=== PATIENT | female | born 1935 | race Caucasian/White ===

== ENCOUNTER 2022-04-07 16:21 | Inpatient (IN) ==
[2022-04-07] MEDS: carvediloL 6.25 MG TABLET PO SCH (23:22)
[2022-04-07] MEDS: NIFEdipine XL (24 HR) 30 MG TAB.ER.24 PO SCH (23:22)
[2022-04-08] MEDS: tiZANidine 4 MG TABLET PO PRN ×2 (01:01→08:32)
[2022-04-08 05:04] LABS: Basophils % 0.3 %; Eosinophils # 0.2 K/mcL (0.0-0.6); Eosinophils % 1.4 %; Hematocrit 24.7 % (35.3-44.9); Hemoglobin 7.9 g/dL (11.5-15.4); Lymphocytes # 1.8 K/mcL (0.6-4.6); Lymphocytes % 17.3 %; Mean Corpuscular Hemoglobin 28.3 pg (28.0-33.3); Mean Corpuscular Volume 88.5 fL (83.0-100.0); Mean Platelet Volume 10.5 fL (9.4-12.4); Monocytes # 1.2 K/mcL (0.0-1.3); Monocytes % 11.4 %; Neutrophils # 7.1 K/mcL (1.6-8.9); Platelet Count 260 K/mcL (140-400); Red Blood Count 2.79 M/mcL (3.82-4.97); Segmented Neutrophils % 67.6 %; White Blood Count 10.6 K/mcL (4.3-11.1)
[2022-04-08 05:30] LABS: Calcium 8.2 mg/dL (8.6-10.3)
[2022-04-08] MEDS ORDERED: *HR* Enoxaparin 40 MG/0.4 ML SYRINGE SQ SCH (07:00)
[2022-04-08] MEDS ORDERED: carvediloL 6.25 MG TABLET PO SCH (08:00)
[2022-04-08] MEDS: Aspirin Enteric Coated 81 MG Tablet PO SCH (08:33)
[2022-04-08] MEDS: carvediloL 6.25 MG TABLET PO SCH ×2 (08:33→18:09)
[2022-04-08] MEDS: *HR* GlyBURIDE 5 MG TABLET PO SCH (08:33)
[2022-04-08] MEDS: NIFEdipine XL (24 HR) 30 MG TAB.ER.24 PO SCH ×2 (08:33→22:17)
[2022-04-08] MEDS: (Ezetimibe 10 MG) PO SCH (08:34)
[2022-04-08] MEDS ORDERED: *HR* Dextrose 50 % in Water (Syg) 50 ML SYRINGE IVP PRN (08:45)
[2022-04-08] MEDS ORDERED: Dextrose Gel 15 GM/37.5 ML TUBE PO PRN ×2 (08:45)
[2022-04-08] MEDS ORDERED: D5% in Water 1,000 ML IVC PRN (08:45)
[2022-04-08] MEDS ORDERED: NIFEdipine XL (24 HR) 30 MG TAB.ER.24 PO SCH (09:00)
[2022-04-08] MEDS: Insulin LISPRO 300 UNITS/3 ML VIAL SUBQ SCH ×3 (13:28→22:07)
[2022-04-09] MEDS: tiZANidine 4 MG TABLET PO PRN (00:58)
[2022-04-09 05:07] LABS: Hematocrit 24.4 % (35.3-44.9); Hemoglobin 7.9 g/dL (11.5-15.4); Mean Corpuscular HGB Conc 32.4 g/dL (31.6-35.5); Mean Corpuscular Hemoglobin 28.5 pg (28.0-33.3); Mean Corpuscular Volume 88.1 fL (83.0-100.0); Mean Platelet Volume 10.2 fL (9.4-12.4); Platelet Count 275 K/mcL (140-400); Red Blood Count 2.77 M/mcL (3.82-4.97); Red Cell Distribution Width 16.9 % (11.5-14.5); White Blood Count 12.2 K/mcL (4.3-11.1)
[2022-04-09 05:23] LABS: Albumin/Globulin Ratio 0.9 (1.1-2.2); Bilirubin,Total 0.3 mg/dL (0.3-1.0); Calcium 8.5 mg/dL (8.6-10.3); Globulin 3.2 g/dL (2.4-3.5); Potassium 4.3 mEq/L (3.5-5.1); Total Protein 6.2 g/dL (6.4-8.9)
[2022-04-09] MEDS: *HR* Enoxaparin 30 MG/0.3 ML SYRINGE SQ SCH (05:23)
[2022-04-09] MEDS: Insulin LISPRO 300 UNITS/3 ML VIAL SUBQ SCH ×4 (08:06→20:46)
[2022-04-09] MEDS: (Ezetimibe 10 MG) PO SCH (08:07)
[2022-04-09] MEDS: *HR* GlyBURIDE 5 MG TABLET PO SCH (08:07)
[2022-04-09] MEDS: carvediloL 6.25 MG TABLET PO SCH ×2 (08:07→16:58)
[2022-04-09] MEDS: Aspirin Enteric Coated 81 MG Tablet PO SCH (08:07)
[2022-04-09] MEDS: NIFEdipine XL (24 HR) 30 MG TAB.ER.24 PO SCH ×2 (08:07→20:46)
[2022-04-09 21:59] LABS: Bilirubin,Urine Negative (Negative); Blood,Urine Trace-lysed (Negative); Clarity,Urine Clear (Clear); Color,Urine Yellow (Yellow); Glucose,Urine (UA) Normal (Normal); Ketones,Urine Negative (Negative); Leukocyte Esterase,Urine Negative (Negative); Nitrite,Urine Negative (Negative); Protein,Urine >=300 mg/dL (Neg-Trace); Urobilinogen,Urine Normal (Normal)
[2022-04-09 22:05] LABS: Bacteria,Urine Few per hpf (None-Few); RBC,Urine 0-3 per hpf (0-3); Squamous Epithelial Cell,Urine Few per hpf (None-Few)
[2022-04-10] MEDS: *HR* Enoxaparin 30 MG/0.3 ML SYRINGE SQ SCH (06:15)
[2022-04-10 07:05] LABS: Hematocrit 27.7 % (35.3-44.9); Hemoglobin 8.7 g/dL (11.5-15.4); Mean Corpuscular HGB Conc 31.4 g/dL (31.6-35.5); Mean Corpuscular Volume 89.1 fL (83.0-100.0); Mean Platelet Volume 9.7 fL (9.4-12.4); Platelet Count 306 K/mcL (140-400); Red Blood Count 3.11 M/mcL (3.82-4.97); Red Cell Distribution Width 17.3 % (11.5-14.5); White Blood Count 12.3 K/mcL (4.3-11.1)
[2022-04-10] MEDS: Insulin LISPRO 300 UNITS/3 ML VIAL SUBQ SCH ×4 (07:51→20:54)
[2022-04-10] MEDS: Aspirin Enteric Coated 81 MG Tablet PO SCH (07:52)
[2022-04-10] MEDS: *HR* GlyBURIDE 5 MG TABLET PO SCH (07:52)
[2022-04-10] MEDS: carvediloL 6.25 MG TABLET PO SCH ×2 (07:52→16:44)
[2022-04-10] MEDS: NIFEdipine XL (24 HR) 30 MG TAB.ER.24 PO SCH ×2 (07:53→20:54)
[2022-04-10] MEDS: (Ezetimibe 10 MG) PO SCH (07:53)
[2022-04-10 07:57] LABS: Calcium 8.8 mg/dL (8.6-10.3); Magnesium 2.1 mg/dL (1.6-2.6); Potassium 3.8 mEq/L (3.5-5.1)
[2022-04-10] MEDS: hydrALAZINE 10 MG TABLET PO PRN (18:49)
[2022-04-10] MEDS: tiZANidine 4 MG TABLET PO PRN (20:54)
[2022-04-11] MEDS: *HR* Enoxaparin 30 MG/0.3 ML SYRINGE SQ SCH (05:21)
[2022-04-11] MEDS: Aspirin Enteric Coated 81 MG Tablet PO SCH (08:39)
[2022-04-11] MEDS: *HR* GlyBURIDE 5 MG TABLET PO SCH (08:39)
[2022-04-11] MEDS: NIFEdipine XL (24 HR) 30 MG TAB.ER.24 PO SCH ×2 (08:39→20:57)
[2022-04-11] MEDS: carvediloL 6.25 MG TABLET PO SCH ×2 (08:39→15:54)
[2022-04-11] MEDS: Insulin LISPRO 300 UNITS/3 ML VIAL SUBQ SCH ×4 (08:44→20:52)
[2022-04-11] MEDS: tiZANidine 4 MG TABLET PO PRN (20:57)
[2022-04-12 04:47] LABS: Basophils % 0.4 %; Eosinophils # 0.2 K/mcL (0.0-0.6); Eosinophils % 1.4 %; Hematocrit 25.9 % (35.3-44.9); Hemoglobin 8.2 g/dL (11.5-15.4); Immature Granulocytes % 2.8 % (0-4); Lymphocytes # 2.4 K/mcL (0.6-4.6); Lymphocytes % 21.5 %; Mean Corpuscular HGB Conc 31.7 g/dL (31.6-35.5); Mean Corpuscular Hemoglobin 28.4 pg (28.0-33.3); Mean Corpuscular Volume 89.6 fL (83.0-100.0); Mean Platelet Volume 10.1 fL (9.4-12.4); Monocytes % 12.9 %; Platelet Count 284 K/mcL (140-400); Red Blood Count 2.89 M/mcL (3.82-4.97); Red Cell Distribution Width 17.3 % (11.5-14.5); White Blood Count 11.2 K/mcL (4.3-11.1)
[2022-04-12 04:50] LABS: Monocytes # 1.4 K/mcL (0.0-1.3); Neutrophils # 6.8 K/mcL (1.6-8.9)
[2022-04-12 04:59] LABS: Potassium 4.3 mEq/L (3.5-5.1)
[2022-04-12] MEDS: *HR* Enoxaparin 30 MG/0.3 ML SYRINGE SQ SCH (05:19)
[2022-04-12] MEDS: *HR* GlyBURIDE 5 MG TABLET PO SCH (08:06)
[2022-04-12] MEDS: NIFEdipine XL (24 HR) 30 MG TAB.ER.24 PO SCH ×2 (08:06→20:14)
[2022-04-12] MEDS: carvediloL 6.25 MG TABLET PO SCH ×2 (08:07→16:54)
[2022-04-12] MEDS: Aspirin Enteric Coated 81 MG Tablet PO SCH (08:07)
[2022-04-12] MEDS: Insulin LISPRO 300 UNITS/3 ML VIAL SUBQ SCH ×4 (08:08→20:12)
[2022-04-12] MEDS: hydrALAZINE 10 MG TABLET PO PRN (21:26)
[2022-04-13] MEDS: *HR* Enoxaparin 30 MG/0.3 ML SYRINGE SQ SCH (04:51)
[2022-04-13] MEDS: Insulin LISPRO 300 UNITS/3 ML VIAL SUBQ SCH ×4 (07:41→20:51)
[2022-04-13] MEDS: *HR* GlyBURIDE 5 MG TABLET PO SCH (08:00)
[2022-04-13] MEDS: carvediloL 6.25 MG TABLET PO SCH ×2 (08:00→17:14)
[2022-04-13] MEDS: NIFEdipine XL (24 HR) 30 MG TAB.ER.24 PO SCH ×2 (08:00→20:56)
[2022-04-13] MEDS: Aspirin Enteric Coated 81 MG Tablet PO SCH (08:00)
[2022-04-13 08:57] LABS: % Iron Saturation 13 % (15-50); Iron 34 mcg/dL (50-170); Transferrin 185 mg/dL (203-362)
[2022-04-13] MEDS ORDERED: Fluticasone Propionate Nasal 50 MCG/SPRAY BOTTLE NS SCH (09:00)
[2022-04-13 09:21] LABS: Folate 14.8 ng/mL (3.0-16.0)
[2022-04-13] MEDS: hydrALAZINE 10 MG TABLET PO PRN (21:48)
[2022-04-14] MEDS: *HR* Enoxaparin 30 MG/0.3 ML SYRINGE SQ SCH (04:26)
[2022-04-14] MEDS: Insulin LISPRO 300 UNITS/3 ML VIAL SUBQ SCH ×4 (07:59→19:40)
[2022-04-14] MEDS: Aspirin Enteric Coated 81 MG Tablet PO SCH (08:00)
[2022-04-14] MEDS: NIFEdipine XL (24 HR) 30 MG TAB.ER.24 PO SCH ×2 (08:00→19:39)
[2022-04-14] MEDS: carvediloL 6.25 MG TABLET PO SCH ×2 (08:00→16:57)
[2022-04-14] MEDS: *HR* GlyBURIDE 5 MG TABLET PO SCH (08:00)
[2022-04-14] MEDS: Ascorbic Acid 500 MG TABLET PO SCH (08:15)
[2022-04-14] MEDS: Loratadine 10 MG TABLET PO SCH (08:15)
[2022-04-14] MEDS: Fluticasone Propionate Nasal 50 MCG/SPRAY BOTTLE NS SCH (08:16)
[2022-04-14] MEDS ORDERED: Fluticasone Propionate Nasal 50 MCG/SPRAY BOTTLE NS SCH (09:00)
[2022-04-15] MEDS: *HR* Enoxaparin 30 MG/0.3 ML SYRINGE SQ SCH (04:12)
[2022-04-15] MEDS: Insulin LISPRO 300 UNITS/3 ML VIAL SUBQ SCH ×4 (07:49→19:50)
[2022-04-15] MEDS: *HR* GlyBURIDE 5 MG TABLET PO SCH (07:51)
[2022-04-15] MEDS: carvediloL 6.25 MG TABLET PO SCH ×2 (07:51→17:23)
[2022-04-15] MEDS: Fluticasone Propionate Nasal 50 MCG/SPRAY BOTTLE NS SCH (07:52)
[2022-04-15] MEDS: Ascorbic Acid 500 MG TABLET PO SCH (07:52)
[2022-04-15] MEDS: NIFEdipine XL (24 HR) 30 MG TAB.ER.24 PO SCH ×2 (07:52→19:49)
[2022-04-15] MEDS: Loratadine 10 MG TABLET PO SCH (07:52)
[2022-04-15] MEDS: Aspirin Enteric Coated 81 MG Tablet PO SCH (07:52)
[2022-04-16 05:25] LABS: Basophils % 0.3 %; Eosinophils # 0.2 K/mcL (0.0-0.6); Eosinophils % 1.6 %; Hematocrit 25.1 % (35.3-44.9); Immature Granulocytes % 1.3 % (0-4); Lymphocytes # 2.1 K/mcL (0.6-4.6); Lymphocytes % 19.8 %; Mean Corpuscular HGB Conc 31.9 g/dL (31.6-35.5); Mean Corpuscular Hemoglobin 28.6 pg (28.0-33.3); Mean Corpuscular Volume 89.6 fL (83.0-100.0); Mean Platelet Volume 9.1 fL (9.4-12.4); Monocytes # 1.5 K/mcL (0.0-1.3); Monocytes % 14.6 %; Neutrophils # 6.5 K/mcL (1.6-8.9); Platelet Count 231 K/mcL (140-400); Red Cell Distribution Width 16.9 % (11.5-14.5); Segmented Neutrophils % 62.4 %; White Blood Count 10.4 K/mcL (4.3-11.1)
[2022-04-16] MEDS: *HR* Enoxaparin 30 MG/0.3 ML SYRINGE SQ SCH (05:31)
[2022-04-16 05:39] LABS: Calcium 8.7 mg/dL (8.6-10.3); Potassium 4.4 mEq/L (3.5-5.1)
[2022-04-16] MEDS: Fluticasone Propionate Nasal 50 MCG/SPRAY BOTTLE NS SCH (07:53)
[2022-04-16] MEDS: carvediloL 6.25 MG TABLET PO SCH ×2 (07:54→16:04)
[2022-04-16] MEDS: Aspirin Enteric Coated 81 MG Tablet PO SCH (07:54)
[2022-04-16] MEDS: Loratadine 10 MG TABLET PO SCH (07:54)
[2022-04-16] MEDS: *HR* GlyBURIDE 5 MG TABLET PO SCH (07:54)
[2022-04-16] MEDS: Ascorbic Acid 500 MG TABLET PO SCH (07:55)
[2022-04-16] MEDS: Insulin LISPRO 300 UNITS/3 ML VIAL SUBQ SCH ×4 (07:55→20:00)
[2022-04-16] MEDS: NIFEdipine XL (24 HR) 30 MG TAB.ER.24 PO SCH ×2 (07:55→19:52)
[2022-04-17] MEDS: *HR* Enoxaparin 30 MG/0.3 ML SYRINGE SQ SCH (04:46)
[2022-04-17] MEDS: Fluticasone Propionate Nasal 50 MCG/SPRAY BOTTLE NS SCH (08:03)
[2022-04-17] MEDS: *HR* GlyBURIDE 5 MG TABLET PO SCH (08:03)
[2022-04-17] MEDS: Insulin LISPRO 300 UNITS/3 ML VIAL SUBQ SCH ×4 (08:03→20:00)
[2022-04-17] MEDS: Loratadine 10 MG TABLET PO SCH (08:04)
[2022-04-17] MEDS: Aspirin Enteric Coated 81 MG Tablet PO SCH (08:04)
[2022-04-17] MEDS: NIFEdipine XL (24 HR) 30 MG TAB.ER.24 PO SCH ×2 (08:04→20:27)
[2022-04-17] MEDS: Ascorbic Acid 500 MG TABLET PO SCH (08:04)
[2022-04-17] MEDS: carvediloL 6.25 MG TABLET PO SCH ×2 (08:04→16:49)
[2022-04-17 09:57] LABS: Basophils % 0.2 %; Eosinophils # 0.2 K/mcL (0.0-0.6); Eosinophils % 1.5 %; Hematocrit 25.5 % (35.3-44.9); Hemoglobin 8.2 g/dL (11.5-15.4); Lymphocytes # 1.7 K/mcL (0.6-4.6); Lymphocytes % 14.1 %; Mean Corpuscular HGB Conc 32.2 g/dL (31.6-35.5); Mean Corpuscular Hemoglobin 28.5 pg (28.0-33.3); Mean Corpuscular Volume 88.5 fL (83.0-100.0); Mean Platelet Volume 9.4 fL (9.4-12.4); Monocytes # 1.3 K/mcL (0.0-1.3); Neutrophils # 8.5 K/mcL (1.6-8.9); Platelet Count 250 K/mcL (140-400); Red Blood Count 2.88 M/mcL (3.82-4.97); Red Cell Distribution Width 16.9 % (11.5-14.5); Segmented Neutrophils % 72.2 %; White Blood Count 11.7 K/mcL (4.3-11.1)
[2022-04-17 10:07] LABS: Magnesium 2.2 mg/dL (1.6-2.6); Potassium 4.1 mEq/L (3.5-5.1)
[2022-04-18] MEDS: *HR* Enoxaparin 30 MG/0.3 ML SYRINGE SQ SCH (04:12)
[2022-04-18] MEDS: Insulin LISPRO 300 UNITS/3 ML VIAL SUBQ SCH ×4 (07:55→20:34)
[2022-04-18] MEDS: Fluticasone Propionate Nasal 50 MCG/SPRAY BOTTLE NS SCH (07:56)
[2022-04-18] MEDS: Loratadine 10 MG TABLET PO SCH (07:57)
[2022-04-18] MEDS: *HR* GlyBURIDE 5 MG TABLET PO SCH (07:57)
[2022-04-18] MEDS: NIFEdipine XL (24 HR) 30 MG TAB.ER.24 PO SCH ×2 (07:57→19:58)
[2022-04-18] MEDS: carvediloL 6.25 MG TABLET PO SCH ×2 (07:57→17:21)
[2022-04-18] MEDS: Aspirin Enteric Coated 81 MG Tablet PO SCH (07:57)
[2022-04-18] MEDS: Ascorbic Acid 500 MG TABLET PO SCH (07:57)
[2022-04-18] MEDS: hydrALAZINE 10 MG TABLET PO PRN (17:21)
[2022-04-18] MEDS ORDERED: hydrALAZINE 10 MG TABLET PO ONE (19:41)
[2022-04-19] MEDS: *HR* Enoxaparin 30 MG/0.3 ML SYRINGE SQ SCH (04:55)
[2022-04-19 04:57] LABS: Basophils % 0.3 %; Eosinophils # 0.2 K/mcL (0.0-0.6); Eosinophils % 1.5 %; Hematocrit 25.3 % (35.3-44.9); Hemoglobin 7.8 g/dL (11.5-15.4); Immature Granulocytes % 1.2 % (0-4); Lymphocytes # 2.1 K/mcL (0.6-4.6); Mean Corpuscular HGB Conc 30.8 g/dL (31.6-35.5); Mean Corpuscular Hemoglobin 27.8 pg (28.0-33.3); Mean Platelet Volume 9.7 fL (9.4-12.4); Monocytes # 1.6 K/mcL (0.0-1.3); Monocytes % 14.2 %; Neutrophils # 7.1 K/mcL (1.6-8.9); Platelet Count 230 K/mcL (140-400); Red Blood Count 2.81 M/mcL (3.82-4.97); Red Cell Distribution Width 16.6 % (11.5-14.5); Segmented Neutrophils % 63.8 %; White Blood Count 11.1 K/mcL (4.3-11.1)
[2022-04-19 05:11] LABS: Calcium 8.8 mg/dL (8.6-10.3); Potassium 4.5 mEq/L (3.5-5.1)
[2022-04-19] MEDS: carvediloL 6.25 MG TABLET PO SCH ×2 (08:37→18:06)
[2022-04-19] MEDS: Loratadine 10 MG TABLET PO SCH (08:37)
[2022-04-19] MEDS: Ascorbic Acid 500 MG TABLET PO SCH (08:37)
[2022-04-19] MEDS: *HR* GlyBURIDE 5 MG TABLET PO SCH (08:37)
[2022-04-19] MEDS: tiZANidine 4 MG TABLET PO PRN (08:37)
[2022-04-19] MEDS: Aspirin Enteric Coated 81 MG Tablet PO SCH (08:37)
[2022-04-19] MEDS: NIFEdipine XL (24 HR) 30 MG TAB.ER.24 PO SCH ×2 (08:37→20:35)
[2022-04-19] MEDS: Insulin LISPRO 300 UNITS/3 ML VIAL SUBQ SCH ×4 (08:38→20:31)
[2022-04-19] MEDS: Fluticasone Propionate Nasal 50 MCG/SPRAY BOTTLE NS SCH (09:02)
[2022-04-19] MEDS: hydrALAZINE 10 MG TABLET PO PRN (20:35)
[2022-04-20] MEDS: *HR* Enoxaparin 30 MG/0.3 ML SYRINGE SQ SCH (05:19)
[2022-04-20] MEDS: *HR* GlyBURIDE 5 MG TABLET PO SCH (08:22)
[2022-04-20] MEDS: Aspirin Enteric Coated 81 MG Tablet PO SCH (08:22)
[2022-04-20] MEDS: Loratadine 10 MG TABLET PO SCH (08:22)
[2022-04-20] MEDS: NIFEdipine XL (24 HR) 30 MG TAB.ER.24 PO SCH ×2 (08:22→21:35)
[2022-04-20] MEDS: tiZANidine 4 MG TABLET PO PRN (08:22)
[2022-04-20] MEDS: carvediloL 6.25 MG TABLET PO SCH ×2 (08:23→18:32)
[2022-04-20] MEDS: Insulin LISPRO 300 UNITS/3 ML VIAL SUBQ SCH ×4 (08:23→20:35)
[2022-04-20] MEDS: Ascorbic Acid 500 MG TABLET PO SCH (08:23)
[2022-04-20] MEDS: Fluticasone Propionate Nasal 50 MCG/SPRAY BOTTLE NS SCH (08:23)
[2022-04-21] MEDS: *HR* Enoxaparin 30 MG/0.3 ML SYRINGE SQ SCH (04:29)
[2022-04-21 04:47] LABS: Basophils % 0.2 %; Eosinophils # 0.1 K/mcL (0.0-0.6); Eosinophils % 1.1 %; Hematocrit 24.3 % (35.3-44.9); Hemoglobin 7.6 g/dL (11.5-15.4); Immature Granulocytes % 0.9 % (0-4); Lymphocytes # 2.3 K/mcL (0.6-4.6); Lymphocytes % 18.6 %; Mean Corpuscular HGB Conc 31.3 g/dL (31.6-35.5); Mean Corpuscular Hemoglobin 27.8 pg (28.0-33.3); Mean Platelet Volume 9.6 fL (9.4-12.4); Monocytes # 1.9 K/mcL (0.0-1.3); Monocytes % 15.8 %; Neutrophils # 7.7 K/mcL (1.6-8.9); Platelet Count 227 K/mcL (140-400); Red Blood Count 2.73 M/mcL (3.82-4.97); Red Cell Distribution Width 16.7 % (11.5-14.5); Segmented Neutrophils % 63.4 %; White Blood Count 12.2 K/mcL (4.3-11.1)
[2022-04-21 05:01] LABS: Albumin 3.1 g/dL (3.5-5.7); Bilirubin,Total 0.2 mg/dL (0.3-1.0); Calcium 9.1 mg/dL (8.6-10.3); Magnesium 2.2 mg/dL (1.6-2.6); Potassium 4.2 mEq/L (3.5-5.1); Total Protein 6.1 g/dL (6.4-8.9)
[2022-04-21] MEDS: Insulin LISPRO 300 UNITS/3 ML VIAL SUBQ SCH ×3 (07:33→18:31)
[2022-04-21] MEDS: carvediloL 6.25 MG TABLET PO SCH ×2 (07:33→18:21)
[2022-04-21] MEDS: Aspirin Enteric Coated 81 MG Tablet PO SCH (07:34)
[2022-04-21] MEDS: NIFEdipine XL (24 HR) 30 MG TAB.ER.24 PO SCH ×2 (07:34→20:44)
[2022-04-21] MEDS: *HR* GlyBURIDE 5 MG TABLET PO SCH (07:34)
[2022-04-21] MEDS: Loratadine 10 MG TABLET PO SCH (07:34)
[2022-04-21] MEDS: Ascorbic Acid 500 MG TABLET PO SCH (07:34)
[2022-04-21] MEDS: Fluticasone Propionate Nasal 50 MCG/SPRAY BOTTLE NS SCH (07:41)
[2022-04-21] MEDS ORDERED: Insulin LISPRO 300 UNITS/3 ML VIAL SUBQ SCH (17:17)
[2022-04-22] MEDS: *HR* Enoxaparin 30 MG/0.3 ML SYRINGE SQ SCH (04:36)
[2022-04-22 06:50] VITALS: BP 173/79; PULSE 97; RESP 15; TEMP 98.4; O2SAT 95
[2022-04-22] MEDS: *HR* GlyBURIDE 5 MG TABLET PO SCH (08:01)
[2022-04-22] MEDS: Loratadine 10 MG TABLET PO SCH (08:01)
[2022-04-22] MEDS: Aspirin Enteric Coated 81 MG Tablet PO SCH (08:01)
[2022-04-22] MEDS: NIFEdipine XL (24 HR) 30 MG TAB.ER.24 PO SCH (08:01)
[2022-04-22] MEDS: carvediloL 6.25 MG TABLET PO SCH (08:01)
[2022-04-22] MEDS: Ascorbic Acid 500 MG TABLET PO SCH (08:01)
[2022-04-22] MEDS: Fluticasone Propionate Nasal 50 MCG/SPRAY BOTTLE NS SCH (10:48)
== END 2022-04-22 11:44 | disposition home health service (06) | DRG 65 ==
LOC: INPGRE 21:32
PROVIDERS: ADMIT Family Medicine; ATTEND Family Medicine